=== PATIENT | female | born 2005 | race Caucasian/White ===

== ENCOUNTER 2025-01-18 22:47 | Emergency (ER) | payer OTHER, SELFPAY ==
--- OUTSIDE RECORDS SUMMARY | 2025-01-10 06:45 | XMS_ITS | Continuity of Care Document ---
Author Organization [facility] Address [address] [place] [address] Phone Care Team Providers Care Managing Editor Name Role Phone Ethel BRENTON Jordan Unavailable Unavailable Allergies, Adverse Reactions, Alerts Substance Reaction Status Criticality No Known Allergies Active No Inform ation Medications Medication Instructions Dosage Effective Dates (start - stop) Status Comments Depo-Provera 150 mg/mL intramuscular syringe inject 1 milliliter by intramuscular route every 3 months 150 MG - Active Problems Condition Type Effective Dates (start - stop) Clini jon Status Comments No Known Problems Procedures Procedure Date Extract; Erupted Th/exposted Rt 025 Nutrit Couns For Control Of [place] Dis Dec Limited Oral Eval Intraoral-periapical 1st Film [id number] Additional Dec [id number]-[id number] Additional Dec Bitewig-single Film Oral Hygiene Instruction Depo Provera 1 Ml OFFICE/OUTPATIENT VISIT, EST Bp scrn perf rec interval DIAST BP < 80 MM HG SYST BP < 130 MM HG MED LIST DOCD IN RD RVW MEDS BY RX/DR IN RD TOBACCO NON-USER Pt inelig neg scrn depres Depo Provera 1 Ml DIAST BP 80-89 MM HG SYST BP < 130 MM HG MED LIST DOCD IN [facility] RVW MEDS BY RX/DR IN [facility] TOBACCO NON-USER Pt inelig neg scrn depres RAPID STI Chalm/Gonorr/Trich CA screen;pelvic/breast exam Obtaining screen pap smear Depo Provera 1 Ml OFFICE/OUTPATIENT VISIT, EST OFFICE/OUTPATIENT VISIT, EST Depo Provera 1 Ml Depo Provera 1 Ml OFFICE/OUTPATIENT VISIT, EST Depo Provera 1 Ml OFFICE/OUTPATIENT VISIT, EST PREV VISIT, EST, AGE 18-39 Depo Provera 1 Ml OFFICE/OUTPATIENT VISIT, EST Depo Provera 1 Ml Depo Provera 1 Ml OFFICE/OUTPATIENT VISIT, EST Bp scrn perf rec interval DIAST BP < 80 MM HG SYST BP < 130 MM HG MED LIST DOCD IN [facility] RVW MEDS BY RX/DR IN [facility] TOBACCO NON-USER Pt inelig neg scrn depres OFFICE/OUTPATIENT VISIT, EST Depo Provera 1 Ml Prophylaxis Adult Nutrit Couns For [facility] [place] Dis Dec Oral Hygiene Instruction Prophylaxis Adult Intraoral-complete Series (bw) Oral Hygiene Instruction Comp Oral Eval New/estab Patient 2022 High Risk OFFICE/OUTPATIENT VISIT, EST Depo Provera 1 Ml Depo Provera 1 Ml PREV VISIT, EST, AGE 18-39 THER/PROPH/DIAG INJ, SC/IM Depo Provera 1 Ml OFFICE/OUTPATIENT VISIT, EST OFFICE/OUTPATIENT VISIT, EST Depo Provera 1 Ml Depo Provera 1 Ml OFFICE/OUTPATIENT VISIT, EST OFFICE/OUTPATIENT VISIT, EST Depo Provera 1 Ml THER/PROPH/DIAG INJ, SC/IM Depo Provera 1 Ml PREV VISIT, EST, AGE 12-17 THER/PROPH/DIAG INJ, SC/IM High Risk Sealant Per Tooth Sealant Per Tooth Sealant Per Tooth Bitewings Four Films Prophylaxis Child Periodic Oral Eval Estab Patient 2017 Topical Jada Of [place] 018 Periodic Oral Eval Estab Patient 2016 Prophylaxis Child Topical Jada Of [place] 017 Oral Hygiene Instruction Low Risk Periodic Oral Eval Estab Patient 2015 Prophylaxis Child Topical Jada Of [place] 016 Oral Hygiene Instruction Periodic Oral Eval Estab Patient 2015 Prophylaxis Child Topical Jada Of [place] 016 Oral Hygiene Instruction Sealant Per Tooth Sealant Per Tooth Treatment Completed Sealant Per Tooth Sealant Per Tooth Prophylaxis Child Topical Jada Of [place] 015 Panoramic Film Comp Oral Eval New/estab Patient 2014 Bitewings-two Films OFFICE/OUTPATIENT VISIT, EST HEP A VACC, PED/ADOL, 2 DOSE DTAP-IPV VACC 4-6 YR IM MMR VACCINE, SC CHICKEN POX VACCINE, SC H1N1 Advance Directives Directive Yes / No Effective Date File Name No Information Encounters Encounter Description Practice Location Reason(s) For Visit Diagnoses Date Provider Providers Copied on Encounter [facility], [address] [place] [address], [id number] , [place] tel:[phone] Dental Clinic ext (chief complaint) Dental caries, unspecifiedEnc ounter for screening for dental disorders 5 Ethel Ortega. [address] [place] [address], [id number], [place]. tel:[phone] [facility], [address] [place] [address], [id number] , [place] tel:[phone] Dental Clinic Dental ER (chief complaint) Encounter for screening for dental disorders 5 Curtis Prince. [address] [place] [address], [id number], [place]. tel:[phone] OFFICE/OUTPA TIENT VISIT, [facility], [address] [place] [address], [id number] , [place] tel:[phone] [facility] contraception (chief complaint) Encounter for management and injection of depo-Provera 5 Simone [facility] Yudy. [address] [place] [address], [id number], [place]. tel:[phone] [facility], [address] [place] [address], [id number] , tel:[phone] [facility] annual exam (chief complaint) Encounter for gynecological examination (general) (routine) without abnormal findings- STD screenEncounte r for surveillance of injectable contraceptive- STD High risk heterosexual behavior 5 [facility] Yudy. [address], [place], [id number], [place]. tel:[phone] OFFICE/OUTPA TIENT VISIT, [facility], [address], [place], [id number] , [place] tel:[phone] [facility] contraception (chief complaint) Body mass index [BMI] 23.0-23.9, adultEncounter for surveillance of injectable contraceptive 5 [facility] Yudy. [address], [place], [id number], [place]. tel:[phone] OFFICE/OUTPA TIENT VISIT, [facility], [address], [place], [id number] , [place] tel:[phone] [facility] contraception (chief complaint) Encounter for surveillance of injectable contraceptiveB oralia mass index [BMI] 23.0-23.9, adult 4 [facility] Yudy. [address], [place], [id number], [place]. tel:[phone] OFFICE/OUTPA TIENT VISIT, [facility], [address], [place], [id number] , [place] tel:[phone] [facility] Depo (chief complaint) Encounter for surveillance of injectable contraceptiveB oralia mass index [BMI] 23.0-23.9, adult 4 [facility] Yudy. [address], [place], [id number], [place]. tel:[phone] OFFICE/OUTPA TIENT VISIT, [facility], [address], [place], [id number] , [place] tel:[phone] [facility] Depo (chief complaint) Body mass index [BMI] 23.0-23.9, adultDepo Provera injection 4 [facility] Yudy. [address], [place], [id number], [place]. tel:[phone] PREV VISIT, [facility], AGE 18-39 [facility], [address], [place], [id number] , [place] tel: [phone] [facility] annual exam (chief complaint) Encounter for gynecological examination (general) (routine) without abnormal findings- STD screen- STD High risk heterosexual behaviorDepo Provera injection Jul- 4 [facility]. [address], [place], [id number], [place]. tel:[phone] OFFICE/OUTPA TIENT VISIT, [facility], [address], [place], [id number] , [place] tel: [phone] [facility] contraception (chief complaint) Surveillance of contraceptive injection 4 [facility]. [address], [place], [id number], [place]. tel:[phone] OFFICE/OUTPA TIENT VISIT, [facility], [address], [place], [id number] , [place] tel: [phone] [facility] contraception (chief complaint) Surveillance of contraceptive injectionBody mass index [BMI] 25.0-25.9, adult 3 [facility]. [address], [place], [id number], [place]. tel:[phone] OFFICE/OUTPA TIENT VISIT, [facility], [address], [place], [id number] , [place] tel: [phone] [facility] contraception (chief complaint) Body mass index [BMI] 24.0-24.9, adultSurveilla nce of contraceptive injection 3 [facility]. [address] [place] [address], [id number], [place]. tel:[phone] [facility], [address] [place] [address], [id number] , [place] tel: [phone] Dental Clinic No Information 3 [facility] [place] Donell. [address] [place], [address], [place]. tel:[phone] [facility], [address], [place], [id number] , [place] tel: [phone] Dental Clinic dn (chief complaint) Encounter for screening for dental disorders 3 Torinbannerglen [facility] Donell. [address] [place], [address], [place]. tel:[phone] OFFICE/OUTPA TIENT VISIT, EST [facility], [address], [place], [id number] , [place] tel: [phone] [facility] contraception (chief complaint) Surveillance of contraceptive injectionBody mass index [BMI] 24.0-24.9, adult 3 [facility] Yudy. [address], [place], [id number], [place]. tel:[phone] [facility], [address], [place], [id number] , [place] tel: [phone] [facility] No Information 3 [facility] Yudy. [address], [place], [id number], [place]. tel:[phone] PREV VISIT, EST, AGE 18-39 [facility], [address], [place], [id number] , [place] tel: [phone] [facility] annual exam (chief complaint)cont raception (chief complaint) Encounter for gynecological examination (general) (routine) without abnormal findingsSurvei llance of contraceptive injection- STD screen- STD High risk heterosexual behavior 3 [facility] Yudy. [address], [place], [id number], [place]. tel:[phone] OFFICE/OUTPA TIENT VISIT, EST [facility], [address], [place], [id number] , [place] tel: [phone] [facility] contraception (chief complaint) Surveillance of contraceptive injection 2 [facility] Yudy. [address], [place], [id number], [place]. tel:[phone] OFFICE/OUTPA TIENT VISIT, [facility], [address], [place], [id number] , [place] tel: [phone] [facility] contraception (chief complaint) Body mass index [BMI] pediatric, 5th percentile to less than 85th percentile for ageSurveillanc e of contraceptive injection Jan- 2 [facility] Yudy. [address], [place], [id number], [place]. tel:[phone] OFFICE/OUTPA TIENT VISIT, [facility], [address], [place], [id number] , [place] tel: [phone] [facility] contraception (chief complaint) Surveillance of contraceptive injectionBody mass index [BMI] 22.0-22.9, adult 2 [facility] Yudy. [address], [place], [id number], [place]. tel:[phone] OFFICE/OUTPA TIENT VISIT, [facility], [address], [place], [id number] , [place] tel:[phone] [facility] contraception (chief complaint) Surveillance of contraceptive injection 2 [facility] Yudy. [address], [place], [id number], [place]. tel:[phone] PREV VISIT, EST, AGE 12-17 [facility], [address] [place] [address], [id number] , [place] tel:[phone] [facility] annual exam (chief complaint) Surveillance of contraceptive injectionEncou nter for test, result negativeBody mass index [BMI] 21.0-21.9, adult- STD screen- STD liefstyle code- Well woman normal findings- STD education 2 [facility] Yudy. [address], [place], [id number], [place]. tel:[phone] [facility], [address], [place], [id number] , [place] tel:[phone] Dental Clinic prophy (chief complaint) Encounter for screening for dental disorders Sep-1 2- 8 Rhea rosario DMD Deepasulocha na. [address] [place], [address], [place]. tel:[phone] [facility], [address], [place], [id number] , [place] tel:[phone] Dental Clinic child prophy (chief complaint) Encounter for screening for dental disorders 7 Cm DMD Jinbo. [address] [place], [address], [place]. tel:[phone] [facility], [address], [place], [id number] , [place] tel: [phone] Dental Clinic Encounter for screening for dental disorders Sep-0 6 Cm DMD Jinbo. [address] [place], [address], [place]. tel:[phone] [facility], [address], [place], [id number] , [place] tel:[phone] Dental Clinic prophy (chief complaint) Encounter for screening for dental disorders 6 [facility] August. [address], [place], [id number], [place]. tel:[phone] [facility], [address], [place], [id number] , [place] tel:[phone] Dental Clinic Dental examination Jan- 5 [facility] August. [address], [place], [id number], [place]. tel:[phone] [facility], [address], [place], [id number] , [place] tel:[phone] Dental Clinic Dental examination 5 [facility] August. [address], [place], [id number], [place]. [phone] [facility], [address], [place], [id number] , [place] tel: [phone] Dental Clinic Dental examination 5 Pedro DMD August. [address], [place], [id number], [place]. [phone] OFFICE/OUTPA TIENT VISIT, EST [facility], [address], [place], [id number] , [place] tel: [phone] [facility] No Information 0 Visci DO David. [address], [place], [id number], [place]. tel:[phone] [facility], [address], [place], [id number] , [place] tel: [phone] [facility] No Information 0 Visci DO David. [address], [place], [id number], [place]. [phone] Family History Family Member Type Diagnosis Age At Onset Mother Problem (finding) Alive and well Father Problem (finding) Alive and well Sister Problem Diabetes mellitus Brother Problem attention deficit hyperactiv ity disorder Immunizations Vaccine Date Status Comments meningococcal B, OMV administered Source: Other Registry meningococcal MCV4P administered Source: Other Registry meningococcal B, OMV administered Source: Other Registry HPV, quadrivalent administered Source: Ot her Registry HPV9 administered Source: Other R egistry meningococcal MCV4P administered Source: Other Registry Tdap administered Source: Other R egistry HPV, bivalent administered Source: Other Registry Hep A, ped/adol, 2 dose administered Sour ce: Other Registry Novel [id number], preservative-free administered Source: Other Regist ry H1N1 administered Note: VIS GIVEN ; Source: New Immunization Record Kinrix administered Source: New Imm unization Record Hep A (ped/adol, 2 dose) administered Iman rce: New Immunization Record Varicella administered Source: New Imm unization Record MMR administered Source: New Imm unization Record pneumococcal conjugate PCV 7 administered Source: Other Registry Influenza, seasonal, injectable administe red Source: Other Registry DTaP administered Source: Other R egistry varicella administered Source: Other R egistry MMR administered Source: Other R egistry Influenza, seasonal, injectable administe red Source: Other Registry Hib, unspecified formulation administered Source: Other Registry pneumococcal conjugate PCV 7 administered Source: Other Registry IPV administered Source: Other R egistry DTaP administered Source: Other R egistry pneumococcal conjugate PCV 7 administered Source: Other Registry IPV administered Source: Other R egistry Hib-Hep B administered Source: Other R egistry DTaP administered Source: Other R egistry pneumococcal conjugate PCV 7 administered Source: Other Registry IPV administered Source: Other R egistry Hib-Hep B administered Source: Other R egistry DTaP administered Source: Other R egistry Hep B, adolescent or pediatric administer ed Source: Other Registry Payers Payer name Insurance type Covered democrat ID Alvina candelarioleonard(s) Self Pay Cap [id number] Social History Type Description Quantity Date Captured Comments Alcohol Use Details No Caffeine Use Details No Tobacco Use Status Current non-smoker Smoking Status Never smoker Sex Female Sexual Orientation Straight or heterosexual Jul Gender Identity Female Vital Signs Date / Time: Height Weight BMI Pulse Rate Blood Pressure Temperature Respiratory Rate Body Surface Area Head Circumference Head Circ. Percentile Wt./Alex. Percentile BMI percentile Pulse Ox Inhaled Ox 11:57 AM 69.00 in 120 /min 140/64 mm[Hg] 98.70 F Chief Complaint And Reason For Visit From encounter dated '01/10/2025 10:45'. ext (chief complaint) Reason For Referral Reason For Referral No Information Plan Of Treatment Date Type Action Status Goal Hepatitis C screening. Due o n due Goal RLP. Due on due Goal Tdap Vaccine. Due on 2025 due Goal Unhealthy drug use screening . Due on due Goal Influenza vaccine. Due on due Goal Tdap due Goal PRAPARE ASSESSMENT. Due on due Goal Depression screening. Due on due Goal Unhealthy drug use screening . Due on due Goal Tdap Vaccine. Due on 2025 due Goal RLP. Due on due Goal PRAPARE ASSESSMENT. Due on due Goal Influenza vaccine. Due on due Goal Depression screening. Due on due Goal Hepatitis C screening. Due o n due Goal Tdap due Goal Influenza vaccine. Due on due Goal Unhealthy drug use screening . Due on due Goal Tdap due Goal Depression screening. Due on due Goal RLP. Due on due Goal PRAPARE ASSESSMENT. Due on due Goal Tdap Vaccine. Due on 2025 due Goal Hepatitis C screening. Due o n due Goal Unhealthy drug use screening . Due on due Goal Tdap due Goal Tdap Vaccine. Due on 2025 due Goal PRAPARE ASSESSMENT. Due on A due Goal RLP. Due on due Goal Hepatitis C screening. Due o n due Goal Influenza vaccine. Due on due Goal Depression screening. Due on due Goal PRAPARE ASSESSMENT. Due on F due Goal Tdap due Goal Hepatitis C screening. Due o n due Goal Unhealthy drug use screening . Due on due Goal Influenza vaccine. Due on due Goal Depression screening. Due on due Goal Tdap Vaccine. Due on 2025 due Goal RLP. Due on due Goal Hepatitis C screening. Due o n due Goal PRAPARE ASSESSMENT. Due on N due Goal Tdap due Goal Tdap Vaccine. Due on 2025 due Goal RLP. Due on due Goal Unhealthy drug use screening . Due on due Goal Depression screening. Due on due Goal Influenza vaccine. Due on due Goal Tdap due Goal Depression screening. Due on due Goal RLP. Due on due Goal Tdap Vaccine. Due on 2025 due Goal Influenza vaccine. Due on due Goal Unhealthy drug use screening . Due on due Goal Hepatitis C screening. Due o n due Goal PRAPARE ASSESSMENT. Due on A due Goal Tdap Vaccine. Due on 2025 due Goal Influenza vaccine. Due on due Goal Hepatitis C screening. Due o n due Goal RLP. Due on due Goal PRAPARE ASSESSMENT. Due on due Goal Unhealthy drug use screening . Due on due Goal Tdap due Goal Depression screening. Due on due Goal Influenza vaccine. Due on due Goal Depression screening. Due on due Goal RLP. Due on due Goal Hepatitis C screening. Due o n due Goal Tdap due Goal Unhealthy drug use screening . Due on due Goal PRAPARE ASSESSMENT. Due on due Goal Tdap Vaccine. Due on 2025 due Goal Tdap due Goal Influenza vaccine. Due on due Goal Unhealthy drug use screening . Due on due Goal Depression screening. Due on due Goal RLP. Due on due Goal Tdap Vaccine. Due on 2025 due Goal PRAPARE ASSESSMENT. Due on J due Goal Hepatitis C screening. Due o n due Goal Hepatitis C screening. Due o n due Goal Influenza vaccine. Due on due Goal Tdap Vaccine. Due on 2025 due Goal Tdap due Goal PRAPARE ASSESSMENT. Due on O due Goal Unhealthy drug use screening . Due on due Goal RLP. Due on due Goal Depression screening. Due on due Goal Dietary manageme nt education, guidance, and counseling completed Goal Tdap due Goal PRAPARE ASSESSMENT. Due on A due Goal RLP. Due on due Goal Depression screening. Due on due Goal Influenza vaccine. Due on due Goal Tdap Vaccine. Due on 2025 due Goal Dietary manageme nt education, guidance, and counseling completed Goal RLP. Due on due Goal Influenza vaccine. Due on due Goal Tdap due Goal PRAPARE ASSESSMENT. Due on due Goal Depression screening. Due on due Goal Tdap Vaccine. Due on 2025 due Goal RLP. Due on due Goal Tdap due Goal Influenza vaccine. Due on due Goal Depression screening. Due on due Goal PRAPARE ASSESSMENT. Due on due Goal Tdap Vaccine. Due on 2025 due Goal Dietary manageme nt education, guidance, and counseling completed Goal Tdap Vaccine. Due on 2022 due Goal PRAPARE ASSESSMENT. Due on due Goal Depression screening. Due on due Goal Influenza vaccine. Due on due Goal Tdap. Due on due Goal RLP. Due on due Goal Influenza vaccine. Due on due Goal Depression screening. Due on due Goal Tdap. Due on due Goal PRAPARE ASSESSMENT. Due on due Goal RLP. Due on due Goal Depression screening. Due on due Goal Tdap. Due on due Goal Influenza vaccine. Due on due Goal RLP. Due on due Goal Dietary manageme nt education, guidance, and counseling completed Goal RLP. Due on due Goal Tdap. Due on due Goal Influenza vaccine. Due on due Goal Depression screening. Due on due Goal Dietary manageme nt education, guidance, and counseling completed Goal Dietary manageme nt education, guidance, and counseling completed Appointment Lilli Hdz BOOKED History Of Present Illness Encounter Date Complaint History Of Prese nt Illness ext Dental ER Dental limited Comments: Laurence marcial is here for Depo Provera. Doing well and desires to continue at this time. Does not desire a in the near future. contraception Discussed contra ception with client. The client is currently using Depo-Provera and abstinence. The client is not currently . Menarche age (Menarche age was 13). annual exam Currently pregna nt: no. The client states using Depo-Provera and abstinence for control. The client does not use tobacco. The client does not drink alcohol. Additional information: Patient is here for annual exam and Depo Provera. 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 contraception Discussed contra ception with client. The client is currently using Depo-Provera and abstinence. The client is not currently . Menarche age (Menarche age was 13). Additional information: Patient is here for Depo Provera. Denies problems and desires to continue at this time. contraception Discussed contra ception with client. The client is currently using Depo-Provera and abstinence. The client desires to remain on current control method. The client is not currently . The client does not desire to be in the next year. Menarche age (Menarche age was 13). Additional information: Patient is here for Depo Provera. Doing well and desires to continue at this time. Depo Patient is here for Depo Provera. Doing well and desires to continue. Does not desire a in the near future. Depo Patient is here for Depo Provera. Doing well and desires to continue. Does not desire a in the near future. annual exam Currently pregna nt: no.Client is not contemplating . The client states using Depo-Provera? and abstinence for control. Patient's menses is absent. The client does not drink alcohol. Additional information: Patient is here for annual exam. She is currently on depo provera and desires to continue. She has alopecia since she was very young and is currently wearing wigs to cover. States as she gets older things are not as bad as she was teased in high school. Declines HIV, RPR and Hep C. She is currently on her vaccines. contraception Discussed contra ception with client. The client is currently using Depo-Provera and abstinence. The client desires to remain on current control method. The client is not currently . The client does not desire to be in the next year. Client denies dysmenorrhea and menorrhagia. Menarche age (Menarche age was 13), Menses (Menses is absent.). Additional information: Patient is here for Depo Provera. Doing well and desire to continue. Does not desire a in the near future. She has started working out and has lost 10 lb. contraception Follow-up iain meraz with patient regarding contraception. The client is currently using Depo-Provera and abstinence. The client is not currently . The client does not desire to be in the next year. Client denies dysmenorrhea and menorrhagia. Menarche age (Menarche age was 13), Menses (Menses is absent.). Additional information: Patient is here for Depo Provera. Doing well and desires to continue. Does not desires a in the near future. contraception Patient does not desire in the near future. Doing well with Depo Provera and desires to continue. dn dn contraception Patient does not desire in the near future. Doing well with Depo Provera and desires to continue. annual exam Currently pregna nt: no. Patient is not contemplating . The patient states she uses Depo-Provera and abstinence for control. Her menses is absent with spotting flow with a frequency of q 12 weeks. Negative for dysmenorrhea and menorrhagia. Negative for: breast discharge, breast lump(s), breast pain and breast self exam.The patient is not post-menopausal. Negative for Hormone replacement therapy. The patient does not use tobacco. She does not drink alcohol. Additional information: Patient is here for annual exam. She is currently using Depo Provera for BCM and desires to continue. She has had 1 lifetime partner and he was about her age.. The sex was consensual. Denies other [employer] WORK[employer] problems at this time. They did use condoms to prevent STDs. contraception contraception Patient does not desire in the near future. Doing well with Depo Provera and desires to continue. contraception Patient does not desire in the near future. Doing well with Depo Provera and desires to continue. contraception Patient does not desire in the near future. Doing well with Depo Provera and desires to continue. contraception Patient does not desire in the near future. Doing well with Depo Provera and desires to continue. annual exam Currently pregna nt: no. The patient states she uses none for control. Her menses is irregular with heavy flow with a frequency of >28 days. Negative for dysmenorrhea and menorrhagia. Negative for: breast discharge, breast lump(s), breast pain and breast self exam. The patient does not use tobacco. She does not drink alcohol. Additional information: Katerina is here to establish care. States she has never been sexually active and does not plan to become active in the near future. States she is currently in a relationship for 1 month. C/O heavy painful irregular menses and would like to start medication to regulate. Desires to start Depo Provera. Denies contraindications. Has completed her gardasil vaccines. . prophy child prophy child prophy prophy Functional Status Date Functional Assessmen t No Information Instructions Date Instruction Additional Infor mary May continue Depo Pr overa. Encouraged calcium 1000mg QD. Recommend condoms for back up BC and to prevent STDs Related to Encounter for management and injection of depo-Provera Encouraged good diet rufino intake, exercise and healthy lifestyle choices. Recommend daily multi-vitamin with Folic acid. Understands the need for non-violent partners in a consensual relationship. Patient does not desire a in the near future. Reviewed control options for prevention and desires to continue using Depo ProveraDeclines HIV, RPR and Hep C May continue Depo Provera. Encouraged calcium 1000mg QD. Recommend condoms for back up BC and to prevent STDs Related to Encounter for gynecological examination (general) (routine) without abnormal findings Rapid STD screen obt ained in office today. If result is negative patient will not receive a call. If positive, [facility] will call patient within 24 hours. Patient states understanding. Encouraged to use condoms in the future to prevent STDs Related to - STD screen May continue Depo Pr overa. Encouraged calcium 1000mg QD. Recommend condoms for back up BC and to prevent STDs Related to Encounter for surveillance of injectable contraceptive May continue Depo Pr overa. Encouraged calcium 1000mg QD. Recommend condoms for back up BC and to prevent STDs Related to Encounter for surveillance of injectable contraceptive Giving encouragement to exercise Related to Body mass index [BMI] 23.0-23.9, adult Dietary needs education Related to Body mass index [BMI] 23.0-23.9, adult May continue Depo Pr overa. Encouraged calcium 1000mg QD. Recommend condoms for back up BC and to prevent STDs Related to Encounter for surveillance of injectable contraceptive Giving encouragement to exercise Related to Body mass index [BMI] 23.0-23.9, adult Dietary needs education Related to Body mass index [BMI] 23.0-23.9, adult May continue Depo Pr overa. Encouraged calcium 1000mg QD. Recommend condoms for back up BC and to prevent STDs Related to Encounter for surveillance of injectable contraceptive Giving encouragement to exercise Related to Body mass index [BMI] 23.0-23.9, adult Dietary needs education Related to Body mass index [BMI] 23.0-23.9, adult May continue Depo Pr overa. Encouraged calcium 1000mg QD. Recommend condoms for back up BC and to prevent STDs Related to Depo Provera injection Giving encouragement to exercise Related to Body mass index [BMI] 23.0-23.9, adult Dietary needs education Related to Body mass index [BMI] 23.0-23.9, adult Rapid STD screen obt ained in office today. If result is negative patient will not receive a call. If positive, [facility] will call patient within 24 hours. Patient states understanding. Encouraged to use condoms in the future to prevent STDs Related to - STD screen Encouraged good diet rufino intake, exercise and healthy lifestyle choices. Recommend daily multi-vitamin with Folic acid. Understands the need for non-violent partners in a consensual relationship. Patient does not desire a in the near future. Reviewed control options for prevention and desire to continue using Depo Provera.Declines HIV, RPR and Hep C.She is up to date on her vaccines Related to Encounter for gynecological examination (general) (routine) without abnormal findings May continue Depo Pr overa. Encouraged calcium 1000mg QD. Recommend condoms for back up BC and to prevent STDs Related to Depo Provera injection May continue Depo Pr overa. Encouraged calcium 1000mg QD. Recommend condoms for back up BC and to prevent STDs Related to Surveillance of contraceptive injection Dietary management e ducation, guidance, and counseling Related to Body mass index [BMI] 25.0-25.9, adult Giving encouragement to exercise Related to Body mass index [BMI] 25.0-25.9, adult May continue Depo Pr overa. Encouraged calcium 1000mg QD. Recommend condoms for back up BC and to prevent STDs Related to Surveillance of contraceptive injection Giving encouragement to exercise Related to Body mass index [BMI] 24.0-24.9, adult Dietary management e ducation, guidance, and counseling Related to Body mass index [BMI] 24.0-24.9, adult May continue Depo Pr overa. Encouraged calcium 1000mg QD. Recommend condoms for back up BC and to prevent STDs Related to Surveillance of contraceptive injection Dietary management e ducation, guidance, and counseling Related to Body mass index [BMI] 24.0-24.9, adult Giving encouragement to exercise Related to Body mass index [BMI] 24.0-24.9, adult May continue Depo Pr overa. Encouraged calcium 1000mg QD. Recommend condoms for back up BC and to prevent STDs Related to Surveillance of contraceptive injection Cervical cultures se nt to lab. Patient to call in 1 week for results Related to - STD screen Encouraged monthly B SE. Recommend calcium 1000mg QD. Encouraged good dietary intake and exercise. Laboratory specimens sent to lab. Patient to call in 2 weeks if desires results.Discussed control options and patient desires to continue Depo Provera Related to Encounter for gynecological examination (general) (routine) without abnormal findings May continue Depo Pr overa. Encouraged calcium 1000mg QD. Recommend condoms for back up BC and to prevent STDs Related to Surveillance of contraceptive injection May continue Depo Pr overa. Encouraged calcium 1000mg QD. Recommend condoms for back up BC and to prevent STDs Related to Surveillance of contraceptive injection Dietary management e ducation, guidance, and counseling Related to Body mass index [BMI] pediatric, 5th percentile to less than 85th percentile for age May continue Depo Pr overa. Encouraged calcium 1000mg QD. Recommend condoms for back up BC and to prevent STDs Related to Surveillance of contraceptive injection Dietary management e ducation, guidance, and counseling Related to Body mass index [BMI] 22.0-22.9, adult May continue Depo Pr overa. Encouraged calcium 1000mg QD. Recommend condoms for back up BC and to prevent STDs Related to Surveillance of contraceptive injection Discussed STDs in de tail and encouraged continued abstinence. Encouraged condoms to prevent STDs in the future is she becomes sexually active Related to - STD education Encouraged monthly B SE. Recommend calcium 1000mg QD. Encouraged good dietary intake and exercise. Laboratory specimens sent to lab. Patient to call in 2 weeks if desires results.Discussed control options and patient desires Depo Provera and abstinence Related to - Well woman normal findings Cervical cultures se nt to lab. Patient to call in 1 week for results Related to - STD screen May continue Depo Pr overa. Encouraged calcium 1000mg QD. Recommend condoms for back up BC and to prevent STDs Related to Surveillance of contraceptive injection Exercises education, guidance, and counseling Related to Body mass index [BMI] 21.0-21.9, adult Dietary management e ducation, guidance, and counseling Related to Body mass index [BMI] 21.0-21.9, adult Assessments Type Assessment Date No Information Patient Care Teams Name Effective Dates (start - stop) Status Members No Information
[2025-01-18 22:52] VITALS: BP 144/86; PULSE 105; TEMP 37.1; O2SAT 99; BMI 23.6
--- NOTE | 2025-01-18 23:28 | ED_ITS ---
HPI - Dental/Oral General Chief complaint: Dental/Oral Stated complaint: TOOTHACHE AND SWELLING Time Seen by Provider: 01/18/25 23:24 Source: patient Mode of arrival: walk-in Limitations: no limitations History of Present Illness HPI Narrative: dental pain past month. Developed increased pain and swelling today. no difficulty swallowing or breathing . Able to open her mouth without significant discomfort Related Data Home Medications ?Medication ?Instructions ?Recorded ?Confirmed control 01/18/25 Allergies Allergy/AdvReac Type Severity Reaction Status Date / Time No Known Drug Allergies Allergy Verified 01/18/25 22:58 Review of Systems 2 ROS0 Status of ROS 10 or more systems reviewed and unremark able except as noted in history and below PFSH PFSH Social History Little interest or pleasure in doing things: not at all Feeling down, depressed, or hopeless: not at all Exam Constitutional Vital Signs, click to edit/add: Last Vital Signs Temp 98.7 F 01/18/25 22:52 Pulse 105 H 01/18/25 22:52 Resp 18 01/18/25 22:52 BP 144/86 H 01/18/25 22:52 Pulse Ox 99 01/18/25 22:52 O2 Del Method Room Air 01/18/25 22:52 Common normals: no apparent distress, average body habitus, oriented x3, no limitations, healthy appearing, alert and well nourished [facility] Common normals: normocephalic Face and sinus images: 2 1. facial swelling. No swelling of her neck or enlarged nodes Mouth: oral and palatal mucosa normal Eye Common normals: PERRL and EOMs intact bilaterally Respiratory Common normals: normal respiratory effort, no retractions, no use of accessory muscles and clear to auscultation bilaterally Extremity Common normals: normal to inspection and full ROM Neuro Common normals: oriented x3, CN's II-XII intact bilaterally, moves all extremities and no focal motor deficits Psych Appearance: grossly normal Course Vital Signs Vital signs: Vital Signs Temperature 98.7 F 01/18/25 22:52 Pulse Rate 105 H 01/18/25 22:52 Respiratory Rate 18 01/18/25 22:52 Blood Pressure 144/86 H 01/18/25 22:52 Pulse Oximetry 99 01/18/25 22:52 Oxygen Delivery Method Room Air 01/18/25 22:52 Temperature 98.7 F 01/18/25 22:52 Pulse Rate 105 H 01/18/25 22:52 Respiratory Rate 18 01/18/25 22:52 Blood Pressure 144/86 H 01/18/25 22:52 Pulse Oximetry 99 01/18/25 22:52 Oxygen Delivery Method Room Air 01/18/25 22:52 MDM - Dental/Oral MDM Narrative Medical decision making narrative: patient presents with dental abscess. has swelling of her face /mandible . no swelling of the adjoining neck. no clinical evidence of airway compromise. No trismus. given dose of prednisone and clindamycin and discharged home with a prescription for clindamycin and advised to follow up with her dentist Discharge Plan Discharge Chief Complaint: Dental/Oral Clinical Impression: Dental abscess Patient Disposition: Home, Self-Care Prescriptions / Home Meds: No Action control Print Language: Bhutanese Instructions: Dental Abscess (ED) Additional Instructions: follow up with your dentist next week. Return if swelling increases Referrals: Physician,Non-Staff, MD [Primary Care Provider] - 1 week
[2025-01-19] MEDS: CLINDAMYCIN HCL 150 MG CAPSULE 450 MG PO (00:06)
[2025-01-19] MEDS: PREDNISONE 20 MG TABLET 40 MG PO (00:06)
== END 2025-01-19 00:10 | disposition home or self-care (01) ==
PROVIDERS: Emergency Provider Internal Medicine
DX: K04.7 Periapical abscess without sinus (principal)
CPT/HCPCS: 99283; J7512